=== PATIENT | male | born 1960 ===

== ENCOUNTER 2021-03-15 20:00 | Outpatient (CLI) | payer OTHER, SELFPAY | END 2021-03-15 20:01 | disposition home or self-care (01) | LOC: SLEEP 03-16 08:24 | PROVIDERS: Family Provider Family Medicine; PCP Family Medicine; Visit Provider Family Medicine | DX: G47.30 Sleep apnea, unspecified (principal) | CPT/HCPCS: 95810 ==

== ENCOUNTER 2021-09-13 14:27 | Outpatient (CLI) | payer OTHER, SELFPAY ==
--- NOTE | 2021-09-13 14:15 | USCV_ITS ---
Jeramy Minor Age: 61 Gender: M : 1960 Exam Date: 09/13/2021 15:36 Ordering Phys: Paloma Perez MD ([email or web address]) Technologist: RAFAEL [place] [facility] [place]ication: SOB BP: 120 / 60 HR: 73 Rhythm: Sinus Technical Quality: Adequate MEASUREMENTS (Male / Female) Normal Values 2D ECHO LV Diastolic Diameter PLAX 4.1 cm 4.2 - 5.9 / 3.9 - 5.3 cm LV Systolic Diameter PLAX 2.8 cm IVS Diastolic Thickness 0.7 cm 0.6 - 1.0 / 0.6 - 0.9 cm IVS Systolic Thickness 1.0 cm LVPW Diastolic Thickness 1.1 cm 0.6 - 1.0 / 0.6 - 0.9 cm LVPW Systolic Thickness 1.7 cm LVOT Diameter 2.0 cm LV Ejection Fraction 2D Teich 60.1 % LV Ejection Fraction MOD 2C 56.3 % LV Ejection Fraction 2C AL 57.4 % LA Diameter 3.3 cm LA Width 3.7 cm LA Height 5.3 cm RA Width 3.0 cm RA Height 4.7 cm Aorta at Sinotubular Diameter 2.6 cm M-MODE Aortic Annulus Diameter 3.3 cm LA Ao Ratio MM 1.0 MV E Point Septal Separation 0.4 cm DOPPLER AV Peak Velocity 163.0 cm/s LVOT Peak Velocity 122.0 cm/s AV Area Cont Eq vti 2.4 cm squared AV Area Cont Eq pk 2.4 cm squared MV Area PHT 4.9 cm squared Mitral E to A Ratio 0.9 MV E' Velocity 35.5 cm/s Mitral E to MV E' Ratio 6.5 Mitral E to LV E' Lateral Ratio 6.1 Mitral E to LV E' Septal Ratio 6.9 Right Atrial Pressure 3.0 mmHg RV Acceleration Time 0.2 s RV Ejection Time 0.3 s RV AcT/ET 0.5 FINDINGS Left Ventricle Normal left ventricular cavity size. Normal left ventricular systolic function. No regional wall motion abnormalities. Left ventricular ejection fraction is estimated at 60 %. Grade I/IV diastolic dysfunction (abnormal relaxation filling pattern), normal to mildly elevated filling pressures. Right Ventricle The right ventricle is normal in size and function. RVSP could not be calculated due to incomplete tricuspid regurgitation velocity profile. Right Atrium The right atrium is normal in size. Left Atrium The left atrium is normal in size. Mitral Valve Mildly thickened mitral valve. No mitral valve stenosis. Trace mitral valve regurgitation. Aortic Valve Mild aortic valve calcification. No aortic valve stenosis. Trace aortic valve regurgitation. Tricuspid Valve Structurally normal tricuspid valve without significant stenosis or regurgitation. Pulmonic Valve Structurally normal pulmonic valve without significant stenosis. There is no pulmonic regurgitation. Pericardium Normal pericardium without effusion. Aorta Normal ascending aorta dimension. CONCLUSIONS 1-Normal left ventricular cavity size. Normal left ventricular systolic function. No regional wall motion abnormalities. Left ventricular ejection fraction is estimated at 60 %. Grade I/IV diastolic dysfunction (abnormal relaxation filling pattern), normal to mildly elevated filling pressures. 2-There is no pericardial effusion. 3-No significant valve abnormalities. 4-There is no pericardial effusion. 5-There are no prior echocardiogram studies to compare. Paloma Perez MD (Electronically Signed) Final Date: 14 September 2021 20:26 S
== END 2021-09-13 14:28 | disposition home or self-care (01) ==
LOC: RAD 14:29
PROVIDERS: PCP Family Medicine; Visit Provider Internal Medicine Cardiovascular Disease
DX: R06.02 Shortness of breath (principal); R07.9 Chest pain, unspecified
CPT/HCPCS: 93306

== ENCOUNTER → 2022-02-07 14:42 | Outpatient (BNVA) | payer OTHER, SELFPAY | PROVIDERS: Family Provider Family Medicine; PCP Family Medicine; Visit Provider Internal Medicine Cardiovascular Disease | DX: Z01.89 Encounter for other specified special examinations (principal) | CPT/HCPCS: 84153 ==

== ENCOUNTER → 2022-02-28 08:33 | Outpatient (BNVA) | payer OTHER, SELFPAY | PROVIDERS: Family Provider Family Medicine; PCP Family Medicine; Referring Provider Family Medicine; Visit Provider Surgery | DX: Z12.11 Encounter for screening for malignant neoplasm of colon (principal) | CPT/HCPCS: 99213 ==

== ENCOUNTER → 2022-03-07 15:14 | Outpatient (BNVA) | payer OTHER, SELFPAY | PROVIDERS: Family Provider Family Medicine; PCP Family Medicine; Visit Provider Internal Medicine Cardiovascular Disease | DX: I25.119 Atherosclerotic heart disease of native coronary artery with unspecified angina pectoris (principal); I10 Essential (primary) hypertension; Z87.891 Personal history of nicotine dependence | CPT/HCPCS: 99204 ==

== ENCOUNTER 2022-03-16 07:09 | Outpatient (CLI) | payer OTHER, SELFPAY ==
--- NOTE | 2022-03-16 | ECG_ITS ---
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 Interpretive Statements NAME OF STUDY: EXERCISE SESTAMIBI STRESS TEST INDICATION: Chest Pain, PROCEDURE: The baseline electrocardiogram showed normal sinus rhythm with normal ST-Ts. At the baseline, the patient's blood pressure was 123/86 mm Hg with a heart rate of 80 bpm. The patient exercised for 8 minutes and 59 seconds on a standard Prince protocol. Patient attained a maximum heart rate of 144 beats per minute(89% of the maximum predicted heart rate) with a blood pressure at the peak exercise of 198/83 mm Hg. The EKG at the peak exercise revealed some nonspecific ST changes. Patient did not have any chest pain or any significant arrhythmis with the exercise Sestamibi was injected 1 minute prior to the peak exercise During the recovery phase, there were no new changes. Blood pressure at the end of the recovery phase was 149/84 mm Hg with a heart rate of 96 per minute. CONCLUSION: 1. Nonspecific EKG changes with the treadmill exercise 2. No exercise-induced chest pain or cardiac arrhythmia 3. Fair exercise tolerance, attained a maximum of 10.2 METs 4. Sestamibi/Sestamibi perfusion results pending; see separate report. Electronically Signed On 03-18-2022 17:57:14 CDT by Claudio Carson M.D. [email or web address]
[2022-03-16 07:56] VITALS: BMI 31.6
--- NOTE | 2022-03-16 08:06 | NMCV_ITS ---
NM son perf SPECT r/s* [id number] Jeramy Minor Age: 61 Gender: M : 1960 Exam Date: 03/16/2022 08:54 Ordering Phys: Claudio Carson MD ([email or web address]) Technologist: KEEGAN Alvarado Exam Location: [facility] Indications: Chest pain STRESS TEST Please see separate stress test report in [facility] for full findings IMAGE PROTOCOL Rest/Stress 1 Exercise Day Radiopharmaceutical Dose (mCi) Administration Site Administered by Rest: Tc-99m 11.0 IV KEEGAN Alvarado Sestamibi Stress:Tc-99m 32.9 IV KEEGAN Alvarado Sestamimichael Rest: 16-Mar-2022 60 Discovery 630 Stress: 16-Mar-2022 30 Discovery 630 Radiopharmaceutical was injected at 86 % maximum heart rate. Images obtained in supine and prone position. SPECT RESULTS Technical Quality: Good Raw Data Analysis: Normal Image Corrections: Patient motion artifact - motion correction applied Summed Stress Score: 0 Summed Rest Score: 0 Summed Difference Score: 0 PERFUSION FINDINGS Uniform myocardial tracer uptake with no significant perfusion normalities. FUNCTIONAL RESULTS (calculated via Gated SPECT) Stress Image LV EF (%): 71 Stress EDV (mL):118 TID: 0.73 Stress ESV (mL):34 FUNCTIONAL FINDINGS: Segmental wall motion analysis revealing no gross wall motion abnormalities IMPRESSIONS 1. Unremarkable Myocardial perfusion imaging 2. Normal ejection fraction of 71%. 3. Segmental wall motion analysis revealing no gross wall motion abnormalities. 4. Normal LV volume. No similar previous studies are available for comparison Dr Claudio Carson MD [facility] (Electronically Signed) Final Date: 16 March 2022 18:21 S
[2022-03-16 10:13] VITALS: BP 149/84; PULSE 97
== END 2022-03-16 07:10 | disposition home or self-care (01) ==
LOC: CDL 07:11
PROVIDERS: PCP Family Medicine; Visit Provider Internal Medicine Cardiovascular Disease
DX: R07.9 Chest pain, unspecified (principal)
CPT/HCPCS: 78452; 93017; A9500

== ENCOUNTER 2022-03-24 20:00 | Outpatient (CLI) | payer OTHER, SELFPAY | END 2022-03-24 20:01 | disposition home or self-care (01) | LOC: SLEEP 03-25 05:35 | PROVIDERS: PCP Family Medicine; Visit Provider Family Medicine | DX: G47.33 Obstructive sleep apnea (adult) (pediatric) (principal) | CPT/HCPCS: 95811 ==

== ENCOUNTER 2022-05-04 08:52 | Day surgery (SDC) | payer OTHER, SELFPAY ==
[2022-05-02 11:02] VITALS: BMI 31.4
[2022-05-04 10:09] VITALS: BP 141/86; PULSE 59; RESP 18; TEMP 36.6; O2SAT 97
--- NOTE | 2022-05-04 10:32 | ANES.PREANE2 ---
Pre-Anesthetic Assessment Height/Weight: Height 1.88 m Weight 111.13 kg Temp Pulse Resp BP Pulse Ox O2 Del Method 97.8 F 59 L 18 141/86 97 05/04/22 10:05/04/22 10:05/04/22 10:09 05/04/22 10:09 05/04/22 10:05/04/22 10:09 Preop Diagnosis: Screening Operation Date: 05/04/22 10:45 Proposed Procedures p Colonoscopy(Not Applicable) - Zachary Ayala DO Familial anesthetic complications: None Was Beta Irma taken within 24 hours: N/A Was Clonidine taken within 24 hours: N/A Last intake: Intake Last Liquid Date 05/03/22 Last Liquid Time 23:30 Last Solid Date 05/02/22 Last Solid Time 18:00 Social No alcohol and No tobacco Exam alert, oriented x 3, clear to auscultation bilaterally and regular rate & rhythm Airway Submandibular: within normal limits Cervical ROM: within normal limits Mallampati: Class I Dentition: chipped Comments: Comments: Missing multiple teeth History/ROS No significant complaints Pulmonary Asthma, Chronic Obstructive Pulmonary Disease and Shortness of Breath CV/HEM Coronary Artery Disease and Hypertension None reported Hepatic None reported GI Gastroesophageal Reflux Disease (Poorly controlled) Metabolic Diabetes Mellitus (Pre diabetes ) and Hyperlipidemia [facility] [place] None reported Neuropsych None reported Anesthetic Plan ASA status: 2 Anesthesia: Anesthesia Evaluation, General and MAC Other: I discussed with the patient risks, goals, and benefits of MAC and general anesthesia. We discussed spectrum of MAC anesthesia including conversion to general as well as possibility of recall of intraoperative stimuli including discomfort/pain. Patient agrees to proceed with MAC. Risk of > 500 ml blood loss (7ml/kg in children): No Medications/Allergies Home Medications Medication Instructions Recorded Confirmed Last Taken Type albuterol sulfate 90 mcg/actuation 2 puff inhalation Q6H PRN Allergy 06/16/21 05/04/22 05/03/22 History aerosol inhaler Symptoms aspirin 81 mg tablet,delayed 81 mg PO DAILY 06/16/21 05/02/22 05/03/22 History release (Adult Low Dose Aspirin) budesonide-formoterol HFA 160 2 puff inhalation BID 06/16/21 05/02/22 05/03/22 History mcg-4.5 mcg/actuation aerosol inhaler cholecalciferol (vitamin D3) 25 25 mcg PO DAILY 06/16/21 05/02/22 05/03/22 History mcg (1,000 unit) capsule famotidine 20 mg tablet 20 mg PO BID 06/16/21 05/02/22 05/03/22 History nitroglycerin 0.4 mg sublingual 0.4 mg sublingual Q5M PRN chest 06/16/21 05/04/22 6 Months Ago Rx tablet (Nitrostat) pain #25 tabs ~11/01/21 pantoprazole 40 mg tablet,delayed 40 mg PO DAILY 06/16/21 05/02/22 05/03/22 History release atorvastatin 40 mg tablet 40 mg PO DAILY #90 tabs 09/06/21 05/02/22 05/03/22 Rx fluticasone 250 mcg-salmeterol 50 1 inh inhalation BID 09/06/21 05/02/22 05/03/22 History mcg/dose blistr powdr for inhalation (Wixela Inhub) hydrochlorothiazide 25 mg tablet 25 mg PO DAILY #90 tabs 09/06/21 05/02/22 05/03/22 Rx isosorbide mononitrate 30 mg 30 mg PO DAILY 03/07/22 05/02/22 05/03/22 History tablet,extended release 24 hr lisinopril 40 mg tablet 40 mg PO DAILY #90 tabs 03/07/22 05/02/22 05/03/22 Rx peg 3350-electrolytes 236 240 ml PO Q10M #4,000 mL 05/03/22 05/03/22 Rx gram-22.74 gram-6.74 gram-5.86 gram solution (Golytely) Allergies Allergy/AdvReac Type Severity Reaction Status Date / Time Penicillins Allergy Unknown Unknown Verified 03/07/22 08:52 [facility] Anesthesia Medical History CAD (coronary artery disease) COPD (chronic obstructive pulmonary disease) GERD with apnea Hyperlipidemia LDL goal <70 Surgical History History of colonoscopy S/P appendectomy S/P eye surgery Family History Father CAD (coronary artery disease), Onset Age: 70 X5 stents 2020 & Pacemaker Grandmother Diabetes Denies family history of Clotting disorder Dementia Chronic kidney disease (CKD) Suicide Anesthesia complication Bleeding disorder Lung disease Cancer Stroke Social History Smoking and tobacco status: former smoker Alcohol intake: former Data Anesthesia Cardiac Studies: Echocardiogram 09/13/21 Sestamibi Stress Test (Cardiology) 03/16/22
[2022-05-04] MEDS: sodium chloride 0.9% 1,000 ML 30 ML IV (10:41)
--- NOTE | 2022-05-04 10:49 | P.HP_ITS ---
Providers/Chief Complaint Primary Care Provider: Christel Pagan MD Chief Complaint: Colon cancer screening History of Present Illness Jeramy Minor is a 61 year old male here for a screening colonoscopy Medications/Allergies Home Medications Medication Instructions Recorded Confirmed Last Taken Type albuterol sulfate 90 mcg/actuation 2 puff inhalation Q6H PRN Allergy 06/16/21 05/04/22 05/03/22 History aerosol inhaler Symptoms aspirin 81 mg tablet,delayed 81 mg PO DAILY 06/16/21 05/02/22 05/03/22 History release (Adult Low Dose Aspirin) budesonide-formoterol HFA 160 2 puff inhalation BID 06/16/21 05/02/22 05/03/22 History mcg-4.5 mcg/actuation aerosol inhaler cholecalciferol (vitamin D3) 25 25 mcg PO DAILY 06/16/21 05/02/22 05/03/22 History mcg (1,000 unit) capsule famotidine 20 mg tablet 20 mg PO BID 06/16/21 05/02/22 05/03/22 History nitroglycerin 0.4 mg sublingual 0.4 mg sublingual Q5M PRN chest 06/16/21 05/04/22 6 Months Ago Rx tablet (Nitrostat) pain #25 tabs ~11/01/21 pantoprazole 40 mg tablet,delayed 40 mg PO DAILY 06/16/21 05/02/22 05/03/22 History release atorvastatin 40 mg tablet 40 mg PO DAILY #90 tabs 09/06/21 05/02/22 05/03/22 Rx fluticasone 250 mcg-salmeterol 50 1 inh inhalation BID 09/06/21 05/02/22 05/03/22 History mcg/dose blistr powdr for inhalation (Wixela Inhub) hydrochlorothiazide 25 mg tablet 25 mg PO DAILY #90 tabs 09/06/21 05/02/22 05/03/22 Rx isosorbide mononitrate 30 mg 30 mg PO DAILY 03/07/22 05/02/22 05/03/22 History tablet,extended release 24 hr lisinopril 40 mg tablet 40 mg PO DAILY #90 tabs 03/07/22 05/02/22 05/03/22 Rx peg 3350-electrolytes 236 240 ml PO Q10M #4,000 mL 05/03/22 05/03/22 Rx gram-22.74 gram-6.74 gram-5.86 gram solution (Golytely) Allergies Allergy/AdvReac Type Severity Reaction Status Date / Time Penicillins Allergy Unknown Unknown Verified 03/07/22 08:52 PFSH Acute PFSH: Medical History CAD (coronary artery disease) COPD (chronic obstructive pulmonary disease) GERD with apnea Hyperlipidemia LDL goal <70 Surgical History History of colonoscopy S/P appendectomy S/P eye surgery Family History Father CAD (coronary artery disease), Onset Age: 70 X5 stents 2020 & Pacemaker Grandmother Diabetes Denies family history of Clotting disorder Dementia Chronic kidney disease (CKD) Suicide Anesthesia complication Bleeding disorder Lung disease Cancer Stroke Social History Smoking and tobacco status: former smoker Alcohol intake: former Vitals/I&O/Wt Last Vital Signs Temp 97.8 F 05/04/22 10:09 Pulse 59 L 05/04/22 10:09 Resp 18 05/04/22 10:09 BP 141/86 05/04/22 10:09 Pulse Ox 97 05/04/22 10:09 O2 Del Method 05/04/22 10:09 Weight last 48 hrs Weight 245 lb A&P Assessment and plan (1) Colon cancer screening: Status: Acute Plan Colonoscopy Attestations Medical Necessity Statement*: Home Coding Level of Care Code Acute 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
[2022-05-04 11:31] VITALS: BP 120/51; PULSE 68; RESP 14; TEMP 36.2; O2SAT 96
[2022-05-04 11:41] VITALS: BP 110/57; PULSE 78; RESP 16; O2SAT 96
[2022-05-04 11:52] VITALS: BP 139/84; PULSE 62; RESP 16; O2SAT 97
--- NOTE | 2022-05-04 17:08 | ANE.PACU2 ---
Inpatient post-anesthesia follow up: Airway intact: Yes Vital signs: Temperature 97.1 F Pulse Rate 62 Respiratory Rate 16 Blood Pressure 139/84 Pulse Oximetry 97 Oxygen Delivery Me thod Room Air Oxygen Flow Rate Fraction of Inspir ed Oxygen Hydration adequate: Yes Nausea and vomiting: No Pain level: 1 Mental status: Baseline
== END 2022-05-04 13:00 | disposition home or self-care (01) ==
PROVIDERS: PCP Family Medicine; Visit Provider Surgery
PROC: 0DJD8ZZ Inspection of Lower Intestinal Tract, Via Natural or Artificial Opening Endoscopic (ICD-10-PCS; CPT 45378; principal; 2022-05-04 10:45)
DX: Z12.11 Encounter for screening for malignant neoplasm of colon (principal); E78.5 Hyperlipidemia, unspecified; R73.03 Prediabetes; J44.9 Chronic obstructive pulmonary disease, unspecified; K21.9 Gastro-esophageal reflux disease without esophagitis; I25.10 Atherosclerotic heart disease of native coronary artery without angina pectoris; Z79.82 Long term (current) use of aspirin; Z87.891 Personal history of nicotine dependence; Z88.0 Allergy status to penicillin
CPT/HCPCS: 45378; J2704; J7030

== ENCOUNTER 2024-10-02 09:00 | Outpatient (CLI) | payer OTHER, SELFPAY ==
--- NOTE | 2024-10-02 09:29 | XR_ITS ---
WS: [id number] XR chest 2V* [id number] REASON FOR EXAM: ASTHMA FINDINGS: Mild tortuosity and ectasia of the thoracic aorta. Normal heart size. Hemidiaphragms are flattened and there is expansion of the anterior clear space. Eventration of the right hemidiaphragm. Calcified granulomatous disease bilaterally. No acute pulmonary parenchymal or pleural abnormality. XR/XR chest 2V* [id number] IMPRESSION: Hyperexpansion of the lungs. No acute pulmonary parenchymal or pleural abnormality.
== END 2024-10-02 09:01 | disposition home or self-care (01) ==
LOC: RT 09:01
PROVIDERS: PCP Family Medicine; Visit Provider Chiropractor
DX: J45.909 Unspecified asthma, uncomplicated (principal); I77.810 Thoracic aortic ectasia; R93.89 Abnormal findings on diagnostic imaging of other specified body structures; D71 Functional disorders of polymorphonuclear neutrophils; R91.8 Other nonspecific abnormal finding of lung field
CPT/HCPCS: 71046; 94060